=== PATIENT | male | born 1985 | race Caucasian/White ===

== ENCOUNTER 2016-12-09 04:51 | Emergency (ER) | payer BC | END 2016-12-09 09:30 | disposition home or self-care (01) | LOC: ER1 04:51 | DX: J10.1 Influenza due to other identified influenza virus with other respiratory manifestations (principal) | CPT/HCPCS: 71020; 81001; 99283 ==

== ENCOUNTER → 2022-06-06 | Outpatient (CLI) | payer SELFPAY ==
[~2022-06-06] MED LIST: FLOMAX 0.4 MG0.4 MG PO; FLOMAX0.4 MG PO; NORCO 7.5-3251 EACH PO; ONDANSETRON ODT4 MG PO; PERCOCET 7.5-31 EACH PO
== END ==
LOC: KOH-I 11:17
DX: R05.3 Chronic cough (principal)
CPT/HCPCS: 71046